=== PATIENT | male | born 1955 | race Caucasian/White ===

== ENCOUNTER 2025-09-30 18:41 | Emergency (ER) | payer MEDICARE, OTHER, SELFPAY ==
[2025-09-30 18:52] VITALS: BP 160/81
[2025-09-30 19:15] LABS: Hematocrit 39.7 % (39.0-52.0); Hemoglobin 13.5 g/dL (13.0-18.0); Mean Corp Hgb Conc. 34.0 g/dL (33.0-37.0); Mean Corpuscular Volume 85.7 fL (80.0-94.0); Nucleated Red Blood Cells % 0 % (-); Platelet Count 214 10^3/uL (130-400); Red Cell Dist. Width 16.6 % (11.5-14.5)
[2025-09-30 19:26] LABS: APTT 29.6 Sec (23.4-35.0)
[2025-09-30 19:37] LABS: ALT (SGPT) 38 U/L (0-50); AST (SGOT) 34 U/L (17-59); Albumin 4.4 g/dl (3.5-5.0); Alkaline Phosphatase 91 U/L (38-126); Blood Urea Nitrogen 16 mg/dl (9-20); Calcium 9.2 mg/dl (8.4-10.2); Carbon Dioxide 29 mmol/L (22-30); Chloride 96 mmol/L (98-107); Glucose 137 mg/dl (70-99); Potassium 4.2 mmol/L (3.5-5.1); Sodium 131 mmol/L (135-145); Total Protein 7.1 g/dl (6.3-8.2); eGFR > 60.00
[2025-09-30 19:49] LABS: Troponin I < 0.012 ng/ml
--- NOTE | 2025-09-30 21:19 | ED.GENMED ---
History of Present Illness
General
Chief Complaint: Chest Pain
Source: patient
Exam Limitations: none
Time Seen by Provider: 09/30/25 21:11
Nursing documentation reviewed up to this point in time: agreed with
History of Present Illness
History of Present Illness:
69-year-old male with a past medical history of hypertension, hyperlipidemia, atrial fibrillation, renal cancer status post partial nephrectomy, history of an aortic aneurysm who presents to the emergency department for evaluation of chest pain.
Patient reports onset of symptoms 4 days ago and they have been constant since that time. He reports a sharp pain in the left scapular region that radiates towards the left anterior chest. No clear triggering or relieving factor noted. He denies
any associated shortness of breath, palpitations, nausea, vomiting, abdominal pain. He denies any trauma or injury. He says that he discussed with his solar tech (Dr. Chapman) who recommended he come to the ER to be evaluated. Of note patient
just had surgery for aortic aneurysm�he says that he had part of his aortic arch resected in March 2025 (through [facility]).
Review of Systems
Review of Systems
All Other Systems: ROS reviewed and negative except as documented in HPI and ROS
Constitutional: Denies fever
Respiratory: Denies trouble breathing
Cardiac: Reports chest pain; Denies palpitations or syncope
ABD/GI: Denies abdominal pain, nausea or vomiting
: Denies flank pain
Musculoskeletal: Reports back pain; Denies neck pain
Neurological: Denies dizzy or headache
Phy Exam
Physical Exam
Physical Exam:
General: Awake, alert, oriented x3; no acute distress
Head: Normocephalic, atraumatic
Eyes: Conjunctiva normal, sclera anicteric
Throat: Airway intact, handling secretions
Neck: Trachea midline, supple without meningismus
Lungs: Clear to auscultation bilaterally, no wheezing, rales, rhonchi
Heart: Regular rate and rhythm, no murmurs, gallops, or rubs appreciated
Abd: Soft, non distended, nontender
Back: No signs of trauma to the back or flank and no reproducible tenderness in the area of patient's reported pain
Neuro: Grossly intact
Skin: Warm and dry
Extremities: No edema in extremities, equal pulses in all extremities
Scores
Heart Failure Risk
Heart Failure Risk Score: Not Applicable
Heart Score for Chest Pain Patients
STEMI patient?: Not applicable
Withdrawal Assessment of Alcohol
Withdrawal Assessment Completed?: Not applicable
Course
Orders/Labs/Results
Orders:
Orders
09/30/25 18:42
Electrocardiogram (*1) Urgent
Reason for Study: Chest Pain
EKG- Treatment ONCE
09/30/25 19:01
Complete Blood Count/With Diff Urgent
Comprehensive Metabolic Panel Urgent
PTT Urgent
Troponin I Urgent
09/30/25 21:18
CT Chest/abd/pelvis Angio W/wo Urgent
Comment:
Reason For Exam: left chest and back pain; recent aortic surgery
09/30/25 22:15
Troponin I Urgent
Abnormal Lab Results
09/30/25
19:01
RBC 4.63 L 10^6/uL
(4.70-6.10)
RDW 16.6 H %
(11.5-14.5)
Absolute Monos (auto) 1.0 H 10^3/uL
(0.1-0.6)
Lymphocytes % 15.1 L %
(20.5-51.1)
Monocytes % 11.2 H %
(1.7-9.3)
Sodium 131 L mmol/L
(135-145)
Chloride 96 L mmol/L
(98-107)
Glucose 137 H mg/dl
(70-99)
09/30/25 19:01
09/30/25 19:01
Vital Signs
Initial and Last Documented VS:
Initial Vital Signs
Temp Pulse Resp BP Pulse Ox
36.8 C 64 16 160/81 97
09/30/25 18:52 09/30/25 18:52 09/30/25 18:52 09/30/25 18:52 09/30/25 18:52
Last Documented Vital Signs
Temp Pulse Resp BP Pulse Ox
36.8 C 59 19 146/71 96
09/30/25 18:52 09/30/25 23:15 09/30/25 23:15 09/30/25 23:00 09/30/25 22:45
MDM/Problems Addressed
Differential Diagnosis Includes:
Aortic dissection, PE, ACS, muscular pain/costochondritis, pneumothorax or pneumonia less likely
MDM/Problems Addressed:
69-year-old male who had recent aortic surgery 6 months ago presents for evaluation of left scapular pain rating to the left side of the chest for the past 4 days. Referred by his solar tech for ER evaluation. He is hypertensive here in the ER
but his vital signs are otherwise normal. His physical exam is as noted. He had lab work in triage including a CBC and CMP which showed no clinically significant abnormalities. EKG shows sinus rhythm with no STEMI. He had an undetectable
troponin which we will repeat for completeness (although with reported consistent symptoms for 4 days theoretically single troponin sufficient to rule out acute RI). Very low clinical suspicion for ACS. Given his history we will check CT chest to
rule out aortic pathology. Will monitor very closely on telemetry and reassess at the above.
Repeat troponin undetectable. CT chest/abdomen/pelvis shows no acute abnormalities�postsurgical changes but no dissection, no postsurgical leaking/hematoma. I did review the case with CT surgery who reviewed CTs and agreed no acute abnormality
only postsurgical changes. Clinical reassessment patient is normotensive, says he is feeling a bit better. He says he had similar symptoms a few weeks ago on the right scapula the improved with massage and he thinks that this could be a similar
muscular issue. At this point no clear emergent pathology to account for his symptoms. Stable for discharge can follow-up with his cardiology team on an outpatient basis. He feels very comfortable with this. All questions answered.
Chronic conditions affecting care:
A-fib, hypertension, aortic surgery
Acute Exacerbation and/or Progression of Chronic Illness:
Acutely hypertensive
Acute Exacerbation and/or Progression of Chronic Illness: HTN
*Radiology
Radiology exam reviewed: radiology read reviewed
*Pulse Oximetry
SaO2: 97
Oxygen Mode of Delivery: Room air
Patient hypoxic: no (97%)
*EKG
Interpreted by ED Provider?: Yes
Heart Rate: 64
Rate: normal
Rhythm: sinus
[place]: left axis deviation
Interval: first degree heart block
QRS Pattern: normal QRS
Ischemia: no ischemia
*Critical Care Note
Total Time (30-74mins, 75-104mins- exclusive of procedures): Not Applicable
Data Reviewed
Source: patient
Patient Management
Discussion with other providers: [employer] (Discussed with CT surgery)
ED Attending Note
-
Portions of this chart may have been created with voice recognition software.� Occasional wrong word or��sound alike� substitutions may have occurred due to the inherent limitations of voice recognition software.
Discharge Plan
Departure
Patient Disposition: Home (Routine Discharge)
Date of Disposition: 10/01/25
Time of Disposition: 00:12
Patient with high blood pressure during this ER visit?: Yes
Discharge Problem:
Pain in scapula, Chest pain
Instructions: Chest Pain NON-[facility] Charge Loader Follow Up
Referrals:
Rodri Chapman MD [Active, Cardiology] - Call in 1-3 days for appt
Orion Jara MD [Family Provider, Internal Medicine]
Activity Restrictions/Additional Instructions:
Thank you for visiting the Emergency Department at [facility].
1. Please schedule a follow up appointment as directed. Call first thing tomorrow morning to make an appointment.
2. If indicated, please take your medications as instructed and indicated on discharge paperwork.
3. If any of your symptoms do not improve, or persist, or become more severe within 6-12 hours, please return to the emergency department for further care.
4. Please return to the emergency department if you develop a headache, neck pain/stiffness, fever greater than 100.4F, chest pain, shortness of breath, persistent nausea, vomiting, slurred speech, difficulty walking, numbness/tingling, weakness,
signs of infection or any other symptoms that are worrisome to you.
Please call [phone] if you have any questions.
Interventions
Interventions:
*Risk Screen - Suicide Last Done: 09/30/25 18:42
*General Assessment Last Done: 09/30/25 22:17
*Neglect/Abuse Screening Last Done: 09/30/25 22:17
*ED COVID-19 Vaccine History Last Done: 09/30/25 22:17
*ED Influenza Vaccine History Last Done: 09/30/25 22:17
[facility] Fall Risk Assessment Tool Last Done: 09/30/25 21:38
ED- Cardiac Assessment Last Done: 09/30/25 22:17
Discharge Date and Time
Print Language: ARABIC
[2025-09-30 22:12] VITALS: BP 134/62
[2025-09-30 22:53] LABS: Troponin I < 0.012 ng/ml
[2025-09-30 23:00] VITALS: BP 146/71
[2025-10-01] VITALS: BP 133/72
== END 2025-10-01 00:29 | disposition home or self-care (01) ==
LOC: EMR 18:41
PROVIDERS: Emergency Medicine; EMERGENCY PHYSICIAN Emergency Medicine; FAMILY PHYSICIAN Internal Medicine
DX: M25.512 Pain in left shoulder (principal); R07.9 Chest pain, unspecified; I48.91 Unspecified atrial fibrillation; I10 Essential (primary) hypertension; E78.5 Hyperlipidemia, unspecified; Z85.528 Personal history of other malignant neoplasm of kidney; Z90.5 Acquired absence of kidney
CPT/HCPCS: 99284; 71275; 74174; 80053; 84484; 85025; 85730; 93005; Q9967